=== PATIENT | female | born 1985 | race Hispanic/Latino ===

== ENCOUNTER 2018-10-03 21:06 | Emergency (ER) | payer MEDICAID ==
[2018-10-03 21:20] VITALS: TEMP 97.6
[2018-10-03 21:38] LABS: HCG,QUALITATIVE URINE NEGATIVE (NEGATIVE)
[2018-10-03 21:39] LABS: SQUAMOUS EPITHIAL 1 /hpf (0-5); URINE BACTERIA RARE (<OCC); URINE BILIRUBIN NEGATIVE (NEGATIVE); URINE BLOOD NEGATIVE (NEGATIVE); URINE CLARITY Clear (Clear); URINE COLOR Yellow (YELLOW); URINE GLUCOSE (UA) NORMAL (Normal); URINE LEUKOCYTE ESTERASE NEG Leu/uL (Negative); URINE PROTEIN NEGATIVE (NEGATIVE); URINE UROBILINOGEN NORMAL mg/dL (0.2-1.0)
[2018-10-03 23:32] VITALS: RESP 16; O2SAT 99
[2018-10-03] MEDS ORDERED: Sodium Chloride 0.9% 1,000 ML IV ONE (23:36)
[2018-10-03 23:48] LABS: BASO % 0.3 % (0.0-2.0); EOS # 0.2 K/uL (0.0-0.7); EOS % 2.1 % (0.0-4.0); LYMPH # 2.4 K/uL (1.0-4.3); LYMPH % 24.9 % (20.0-40.0); MEAN CELL VOLUME 89.1 fL (81.0-99.0); MEAN CORPUSCULAR HEMOGLOBIN 30.4 pg (27.0-31.0); MEAN CORPUSCULAR HGB CONC 34.2 g/dL (33.0-37.0); MEAN PLATELET VOLUME 8.7 fL (7.2-11.7); MONO # 0.6 K/uL (0.0-0.8); NEUT # 6.4 K/uL (1.8-7.0); NEUT % 66.7 % (50.0-75.0); NRBC % 0.1 % (0.0-2.0); RBC 4.92 Mil/uL (3.80-5.20); RED CELL DISTRIBUTION WIDTH 12.9 % (11.5-14.5); WHITE BLOOD COUNT 9.6 K/uL (4.8-10.8)
[2018-10-03] MEDS ORDERED: Sodium Chloride 0.9% 1,000 ML ONE (23:49)
[2018-10-04 00:11] LABS: ALB/GLOB RATIO 1.7 (1.0-2.1); ALBUMIN 4.3 g/dL (3.5-5.0); ALT/SGPT 64 U/L (9-52); AST/SGOT 36 U/L (14-36); BLOOD UREA NITROGEN 16 mg/dL (7-17); CALCIUM 9.2 mg/dl (8.6-10.4); GFR NON-AFRICAN AMERICAN > 60
--- NOTE | 2018-10-04 00:53 | C.PDOC ---
History Of Present Illness 33 year old female with PMHx of kidney stones presents to the ED c/o left flank pain associated with dysuria and nausea for the past 3 weeks. Patient saw her PMD last week, had an US done but with no results yet. Patient denies fever, chills, vomit, diarrhea, hematuria, vaginal bleeding, vaginal discharge. <Dolores Cyr - Last Filed: 10/04/18 01:13> History Per: Patient History/Exam Limitations: no limitations Onset/Duration Of Symptoms: Days Current Symptoms Are (Timing): Still Present Quality Of Discomfort: "Pain" Associated Symptoms: Nausea, Urinary Symptoms. denies: Vomiting, Diarrhea Recent travel outside of the [place]: No Additional History Per: Patient Abnormal Vaginal Bleeding: No <Dolores Cyr - Last Filed: 10/04/18 01:13> <Moi Abebe - Last Filed: 10/04/18 02:12> Time Seen by Provider: 10/03/18 23:19 Chief Complaint (Nursing): Female Genitourinary Past Medical History Reviewed: Historical Data, Nursing Documentation, Vital Signs Vital Signs: Last Vital Signs Temp 97.6 F 10/03/18 21:15 Pulse 90 10/03/18 23:13 Resp 16 10/03/18 23:13 BP 168/106 H 10/03/18 23:13 Pulse Ox 99 10/03/18 23:13 - Medical History PMH: HTN, Kidney Stones Surgical History: Cholecystectomy Family History: States: Unknown Family Hx - Social History Hx Alcohol Use: No Hx Substance Use: No - Immunization History Hx Tetanus Toxoid Vaccination: No Hx Influenza Vaccination: No Hx Pneumococcal Vaccination: No <Dolores Cyr - Last Filed: 10/04/18 01:13> Vital Signs: Last Vital Signs Temp 97.6 F 10/03/18 21:15 Pulse 78 10/04/18 01:48 Resp 16 10/04/18 01:48 BP 154/91 H 10/04/18 01:48 Pulse Ox 99 10/04/18 01:48 <Moi Abebe - Last Filed: 10/04/18 02:12> Review Of Systems Constitutional: Negative for: Fever, Chills Cardiovascular: Negative for: Chest Pain Respiratory: Negative for: Shortness of Breath Gastrointestinal: Positive for: Abdominal Pain. Negative for: Nausea, Vomiting Genitourinary: Positive for: Dysuria. Negative for: Vaginal Discharge, Vaginal Bleeding Skin: Negative for: Rash Neurological: Negative for: Weakness, Numbness <Dolores Cyr - Last Filed: 10/04/18 01:13> Physical Exam - Physical Exam Appears: Non-toxic, No Acute Distress Skin: Normal Color, Warm, Dry Head: Atraumatic, Normacephalic Eye(s): bilateral: Normal Inspection Oral Mucosa: Moist Neck: Normal ROM, Supple Chest: Symmetrical Cardiovascular: Rhythm Regular Respiratory: Normal Breath Sounds, No Rales, No Rhonchi, No Wheezing Gastrointestinal/Abdominal: Soft, No Tenderness, No Guarding, No Rebound Back: CVA Tenderness (mild left) Extremity: Normal ROM, No Tenderness, No Swelling Neurological/Psych: Oriented x3, Normal Speech, Normal Cognition Gait: Steady <Dolores Cyr - Last Filed: 10/04/18 01:13> ED Course And Treatment - Laboratory Results Result Diagrams: 10/03/18 23:45 10/03/18 23:45 Lab Results: Total Bilirubin 1.0 mg/dL (0.2-1.3) 10/03/18 23:45 AST 36 U/L (14-36) 10/03/18 23:45 ALT 64 U/L (9-52) H 10/03/18 23:45 Alkaline Phosphatase 68 U/L (38-126) 10/03/18 23:45 Total Protein 6.9 g/dL (6.3-8.3) 10/03/18 23:45 Albumin 4.3 g/dL (3.5-5.0) 10/03/18 23:45 Globulin 2.6 gm/dL (2.2-3.9) 10/03/18 23:45 Albumin/Globulin Ratio 1.7 (1.0-2.1) 10/03/18 23:45 Urine Color Yellow (YELLOW) 10/03/18 21:31 Urine Clarity Clear (Clear) 10/03/18 21:31 Urine pH 6.0 (5.0-8.0) 10/03/18 21:31 Ur Specific [place] 1.012 (1.003-1.030) 10/03/18 21:31 Urine Protein Negative mg/dL (NEGATIVE) 10/03/18 21:31 Urine Glucose (UA) Normal mg/dL (Normal) 10/03/18 21:31 Urine Ketones Trace mg/dL (NEGATIVE) 10/03/18 21:31 Urine Blood Negative (NEGATIVE) 10/03/18 21: Urine Nitrate Negative (NEGATIVE) 10/03/18 21:31 Urine Bilirubin Negative (NEGATIVE) 10/03/18 21: Urine Urobilinogen Normal mg/dL (0.2-1.0) 10/03/18 21:31 Ur Leukocyte Esterase Neg [place]/uL (Negative) 10/03/18 21:31 Urine WBC (Auto) 1 /hpf (0-5) 10/03/18 21: Ur Squamous Epith Cells 1 /hpf (0-5) 10/03/18 21: Urine Bacteria Rare (<OCC) 10/03/18 21: Urine HCG, Qual Negative (NEGATIVE) 10/03/18 21: Urine HCG, Qual Negative (NEGATIVE) 10/03/18 21:31 O2 Sat by Pulse Oximetry: 99 (ON RA) Pulse Ox Interpretation: Normal <Dolores Cyr - Last Filed: 10/04/18 01:13> - Laboratory Results Result Diagrams: 10/03/18 23:45 10/03/18 23:45 Lab Results: Total Bilirubin 1.0 mg/dL (0.2-1.3) 10/03/18 23:45 AST 36 U/L (14-36) 10/03/18 23:45 ALT 64 U/L (9-52) H 10/03/18 23:45 Alkaline Phosphatase 68 U/L (38-126) 10/03/18 23:45 Total Protein 6.9 g/dL (6.3-8.3) 10/03/18 23:45 Albumin 4.3 g/dL (3.5-5.0) 10/03/18 23:45 Globulin 2.6 gm/dL (2.2-3.9) 10/03/18 23:45 Albumin/Globulin Ratio 1.7 (1.0-2.1) 10/03/18 23:45 Urine Color Yellow (YELLOW) 10/03/18 21:31 Urine Clarity Clear (Clear) 10/03/18 21: Urine pH 6.0 (5.0-8.0) 10/03/18 21:31 Ur Specific [place] 1.012 (1.003-1.030) 10/03/18 21:31 Urine Protein Negative mg/dL (NEGATIVE) 10/03/18 21:31 Urine Glucose (UA) Normal mg/dL (Normal) 10/03/18 21:31 Urine Ketones Trace mg/dL (NEGATIVE) 10/03/18 21:31 Urine Blood Negative (NEGATIVE) 10/03/18 21:31 Urine Nitrate Negative (NEGATIVE) 10/03/18 21: Urine Bilirubin Negative (NEGATIVE) 10/03/18 21:31 Urine Urobilinogen Normal mg/dL (0.2-1.0) 10/03/18 21:31 Ur Leukocyte Esterase Neg [place]/uL (Negative) 10/03/18 21: Urine WBC (Auto) 1 /hpf (0-5) 10/03/18 21:31 Ur Squamous Epith Cells 1 /hpf (0-5) 10/03/18 21:31 Urine Bacteria Rare (<OCC) 10/03/18 21:31 Urine HCG, Qual Negative (NEGATIVE) 10/03/18 21:31 Urine HCG, Qual Negative (NEGATIVE) 10/03/18 21:31 Pulse Ox Interpretation: Normal Reevaluation Time: 02:07 Reassessment Condition: Improved <Moi Abebe - Last Filed: 10/04/18 02:12> Medical Decision Making Medical Decision Making: Plan: * Labs * CT abd/pelvis * IV fluids * Toradol 30 mg IVP * UA <Dolores Cyr - Last Filed: 10/04/18 01:13> Medical Decision Making: Upon provider reevaluation patient is feeling better, is medically stable, and requires no further treatment in the ED at this time. Patient will be discharged home with Rx for tramadol . Counseling was provided and all questions were answered regarding diagnosis and need for follow up with your urologist. There is agreement to discharge plan. Return if symptoms persist or worsen. <Moi Abebe - Last Filed: 10/04/18 02:12> Disposition <Dolores Cyr - Last Filed: 10/04/18 01:13> Counseled Patient/Family Regarding: Studies Performed, Diagnosis, Need For Followup, Rx Given - Disposition Disposition Time: 01:00 <Moi Abebe - Last Filed: 10/04/18 02:12> - Disposition Disposition: HOME/ ROUTINE Condition: FAIR Additional Instructions: Please follow up with your urologist Prescriptions: traMADol [Ultram] 50 mg PO TID PRN #15 tab PRN Reason: Pain, Severe (8-10) Instructions: Renal Colic (DC), Kidney Stones (DC), How to Strain Your Urine Forms: [facility] ([place]) - Clinical Impression Clinical Impression: Renal colic on left side, Kidney stone on left side - Scribe Statement The provider has reviewed the documentation as recorded by the Scribe Suleman Field All medical record entries made by the Scribe were at my direction and personally dictated by me. I have reviewed the chart and agree that the record accurately reflects my personal performance of the history, physical exam, medic al decision making, and the department course for this patient. I have also personally directed, reviewed, and agree with the discharge instructions and disposition. <Dolores Cyr - Last Filed: 10/04/18 01:13> Physician Patient Turnover Patient Signed Over To: Moi Abebe Handoff Comments: Pending CT and dispo <Dolores Cyr - Last Filed: 10/04/18 01:13>
[2018-10-04 01:48] VITALS: BP 154/91; PULSE 78
--- NOTE | 2018-10-04 09:02 | CT ---
CT abdomen and pelvis HISTORY: Abdominal pain. COMPARISON: None available. TECHNIQUE: Multiple contiguous axial images were performed through the abdomen and pelvis without the use of intravenous contrast. Subsequently, sagittal and coronal reformatted images were obtained. This CT exam was performed using one or more of the following dose reduction techniques: Automated exposure control, adjustment of the mA and/or kV according to patient size, and/or use of iterative reconstruction technique. Findings: 2 millimeter subpleural nodule along the lateral aspect of the right middle lobe. 3 millimeter nodule within the right lower lobe on series 3, image 27. No pleural or pericardial effusion. Mild fatty infiltration of the liver. Prior cholecystectomy. Spleen is preserved. Splenule. Adrenal glands are preserved. Pancreas is preserved. Small hiatal hernia. Few mildly distended loops of small bowel in the upper mid abdomen. Right kidney: No calculi or hydronephrosis. Left Kidney: 8 millimeter nonobstructive calculus in the lower pole of the left kidney. Underdistended urinary bladder. Prominence of the left adnexa with a suggestion of a 4.6 centimeter left ovarian cyst. Correlation with pelvic ultrasound may be helpful if clinically indicated. Fecal retention in the colon. Appendix is within normal limits. Few shotty para-aortic and inguinal lymph nodes. Degenerative changes in the spine. Mild anterolisthesis of L5 on S1 with associated pars defects. Bone island in the right superior pubic bone. Impression: 8 millimeter nonobstructive calculus in the lower pole of the left kidney. Prominence of the left adnexa with a suggestion of a 4.6 centimeter left ovarian cyst. Correlation with pelvic ultrasound may be helpful if clinically indicated. Mild fatty infiltration of the liver. 2 millimeter subpleural nodule along the lateral aspect of the right middle lobe. 3 millimeter nodule within the right lower lobe on series 3, image 27. Mild anterolisthesis of L5 on S1 with associated pars defects. A preliminary report was generated at 2:04 a.m. on 10/04/[address] Ching Rizo from [employer]. Please note this case was placed in the PA review folder.
== END 2018-10-04 02:32 | disposition home or self-care (01) ==
LOC: C.ER 21:06
DX: N20.0 Calculus of kidney (principal); Z87.442 Personal history of urinary calculi
CPT/HCPCS: 74176; 80053; 81001; 84703; 85025; 96374; 99284; J1885; J7030